=== PATIENT | female | born 1940 | race African-American/Black ===

== ENCOUNTER 2019-05-01 09:47 | Emergency (ER) | payer OTHER ==
[~2019-05-01] VITALS: Ht 154.9 cm; Wt 80.0 kg
[2019-05-01] MEDS ORDERED: ACETAMINOPHEN 325MG TABLET PO ONE (10:30)
[2019-05-01] MEDS ORDERED: BACITRACIN 15GM TUBE TOP ONE (13:15)
[2019-05-01 13:41] VITALS: BP 161/100
== END 2019-05-01 13:43 | disposition home or self-care (01) ==
LOC: ER 09:47
DX: S00.81XA Abrasion of other part of head, initial encounter (principal); M25.561 Pain in right knee; M79.642 Pain in left hand; E11.9 Type 2 diabetes mellitus without complications; E78.00 Pure hypercholesterolemia, unspecified; I10 Essential (primary) hypertension; W01.0XXA Fall on same level from slipping, tripping and stumbling without subsequent striking against object, initial encounter; Y93.01 Activity, walking, marching and hiking; Y92.9 Unspecified place or not applicable
CPT/HCPCS: 70486; 73130; 73560; 99284

== ENCOUNTER 2025-01-09 04:23 | Emergency (ER) | payer OTHER ==
[~2025-01-09] VITALS: Ht 167.6 cm; Wt 78.0 kg
[2025-01-09 04:28] VITALS: O2SAT 98
[2025-01-09 05:14] LABS: BASOPHILS % 0.6 % (0.0-2.0); EOSINOPHILS % 0.4 % (0.0-5.0); HEMATOCRIT. 43.4 % (36.0-48.0); HEMOGLOBIN. 14.1 g/dL (12.0-16.0); LYMPHOCYTES % 15.2 % (20.0-50.0); MEAN CORPUSCULAR HEMOGLOBIN 29.3 pg (28.0-32.0); MEAN CORPUSCULAR HGB CONC 32.4 g/dL (31.0-37.0); MEAN CORPUSCULAR VOLUME 90.4 fL (81.0-99.0); MEAN PLATELET VOLUME 9.7 fl (7.4-10.4); MONOCYTES % 5.1 % (2.0-8.0); NEUTROPHILS % 78.7 % (40.0-76.0); PLATELET 260 x1000/uL (130-400); RED CELL DISTRIBUTION WIDTH 14.1 % (11.6-14.6); WHITE BLOOD COUNT 7.3 x1000/uL (4.5-11.0)
[2025-01-09 05:25] LABS: CHLORIDE 99 mEq/L (98-107); POTASSIUM 4.2 mEq/L (3.5-5.1); SODIUM 135 mEq/L (136-145)
[2025-01-09 05:26] LABS: CARBON DIOXIDE 28 mEq/L (21-32)
[2025-01-09 05:27] LABS: CALCIUM 10.2 mg/dL (8.7-10.4)
[2025-01-09 05:31] LABS: CREATININE 1.2 mg/dL (0.6-1.0)
[2025-01-09 05:32] LABS: TROPONIN I HIGH SENSITIVITY 6 ng/L (3.0-34); UREA NITROGEN BLOOD 15 mg/dL (9-23)
[2025-01-09 05:38] LABS: GLUCOSE 543 mg/dL (70-105)
[2025-01-09 06:18] LABS: ALANINE AMINOTRANSFERASE 16 IU/L (10-49); ALBUMIN 4.1 g/dL (3.2-4.8); ASPARTATE AMINOTRANSFERASE 20 IU/L (<34); BILIRUBIN DIRECT 0.2 mg/dL (<=3.0); BILIRUBIN TOTAL 0.7 mg/dL (0.1-1.0); PROTEIN TOTAL 8.1 g/dL (6.0-8.3)
[2025-01-09 06:24] LABS: LACTIC ACID 3.1 mmol/L (0.4-2.0)
[2025-01-09] MEDS: CEFTRIAXONE 1GM/50ML 50 ML IV ONE (07:30)
[2025-01-09] MEDS: SODIUM CHLORIDE 0.9% 1,000 ML IV ONE (07:30)
[2025-01-09 08:15] LABS: TROPONIN I HIGH SENSITIVITY 9 ng/L (3.0-34)
[2025-01-09 10:25] VITALS: BP 167/84; PULSE 111; RESP 18; TEMP 36.7; O2SAT 99
[2025-01-09] MEDS: INSULIN REGULAR (HUMULIN R) 1000UNITS/10ML VIAL SUBCUT ONE (10:40)
[2025-01-09] MEDS ORDERED: INSULIN REGULAR (HUMULIN R) 1000UNITS/10ML VIAL SUBCUT NR (10:45)
== END 2025-01-09 11:17 | disposition short-term general hospital (02) ==
LOC: ER 04:23
DX: E11.65 Type 2 diabetes mellitus with hyperglycemia (principal); I10 Essential (primary) hypertension; F03.90 Unspecified dementia, unspecified severity, without behavioral disturbance, psychotic disturbance, mood disturbance, and anxiety
CPT/HCPCS: 99291; 70450; 96360; 80076; 80048; 82962; 83880; 83605; 85025; 87040; 84484; 84145; 71045; 72125; 71250; 74176; 93005; 36415; J7030; J1815; 96372